=== PATIENT | female | born 1975 ===

== ENCOUNTER 2020-02-28 14:35 | Outpatient (REF) | payer MEDICAID, SELFPAY | END 2020-02-28 14:36 | disposition home or self-care (01) | LOC: HO.LAB 14:35 | PROVIDERS: Visit Provider Internal Medicine | DX: Z20.828 Contact with and (suspected) exposure to other viral communicable diseases (principal) | CPT/HCPCS: 87635 ==

== ENCOUNTER 2020-04-08 13:52 | Outpatient (REF) | payer MEDICAID, SELFPAY | END 2020-04-08 13:53 | disposition home or self-care (01) | LOC: HO.LAB 13:52 | PROVIDERS: Visit Provider Internal Medicine | DX: Z20.828 Contact with and (suspected) exposure to other viral communicable diseases (principal) | CPT/HCPCS: C9803; U0003 ==

== ENCOUNTER 2020-05-13 07:54 | Outpatient (REF) | payer MEDICAID, SELFPAY | END 2020-05-13 07:55 | disposition home or self-care (01) | LOC: HO.LAB 07:54 | PROVIDERS: Visit Provider Internal Medicine | DX: Z20.828 Contact with and (suspected) exposure to other viral communicable diseases (principal) | CPT/HCPCS: C9803; U0003 ==

== ENCOUNTER 2020-06-18 09:43 | Outpatient (REF) | payer MEDICAID, SELFPAY ==
[2020-06-20 20:21] LABS: HPV mRNA E6/E7 rflx Not Detected (Not Detected)
== END 2020-06-18 09:44 | disposition home or self-care (01) ==
LOC: HO.LAB 09:43
PROVIDERS: PCP Student in an Organized Health Care Education/Training Program; Visit Provider Obstetrics & Gynecology
DX: Z01.419 Encounter for gynecological examination (general) (routine) without abnormal findings (principal); Z11.51 Encounter for screening for human papillomavirus (HPV); E78.00 Pure hypercholesterolemia, unspecified; M06.9 Rheumatoid arthritis, unspecified
CPT/HCPCS: 36415; 87624; 88142

== ENCOUNTER 2020-09-03 08:53 | Outpatient (REF) | payer MEDICAID, SELFPAY ==
--- NOTE | ~2020-09-03 | MM_ITS ---
EXAMINATION: MM SCREENING DIGITAL BREAST TOMOSYNTHESIS, BILATERAL CLINICAL INFORMATION: Screening. Asymptomatic. The lifetime risk of breast cancer based on the Tyrer-Cuzick Model is 7.1%. COMPARISON: Mammography: December 20, 2018 and studies dating back to September 17, 2016 TECHNIQUE: Digital breast tomosynthesis is performed in both the craniocaudal and mediolateral oblique views along with computer-aided detection (CAD). Synthesized 2D images are generated from the tomosynthesis. FINDINGS: The breasts are heterogeneously dense, which may obscure small masses (ACR BI-RADS breast composition Category c). There are no significant masses, abnormal calcifications, or other abnormalities. MM/MM tomosynthesis screening BI IMPRESSION: There are no significant changes from prior study. ASSESSMENT: BI-RADS 1: Negative RECOMMENDATION: Routine annual mammography screening. This patient's information was entered into a reminder system with a target due date for their next mammogram.
== END 2020-09-03 08:54 | disposition home or self-care (01) ==
LOC: HO.MAMMO 08:53
PROVIDERS: Visit Provider Obstetrics & Gynecology
DX: Z12.31 Encounter for screening mammogram for malignant neoplasm of breast (principal)
CPT/HCPCS: 77063; 77067

== ENCOUNTER 2021-01-01 22:51 | Emergency (ER) | payer MEDICAID, SELFPAY ==
[2021-01-01 23:00] VITALS: BP 124/88; PULSE 162; RESP 16; TEMP 37; O2SAT 97; BMI 27.3
--- NOTE | 2021-01-01 23:08 | ECG_ITS ---
Test Reason : TACHYCARDIA Blood Pressure : / mmHG Vent. Rate : 162 BPM Atrial Rate : 162 BPM P-R Int : 124 ms QRS Dur : 076 ms QT Int : 262 ms P-R-T Axes : 000 055 041 degrees QTc Int : 430 ms Sinus tachycardia Nonspecific ST abnormality Abnormal ECG No previous ECGs available Referred By: Generic ED Physician Electronically Signed By:DAVID PAULSON
--- NOTE | 2021-01-01 23:36 | ED_ITS ---
HPI - Arrhythmia/Palpitations General Chief Complaint: Arrhythmia/Palpitations Stated Complaint: palpitations Time Seen by Provider: 01/01/21 23:24 Source: patient Mode of arrival: ambulatory Limitations: no limitations History of Present Illness HPI narrative: 45-year-old female who presents emergency department for evaluation of heart palpitations and chest pain. Patient states that at 9:29 p.m. she noticed her heart was palpitating. She states that lasted approximately 9 minutes. She describes the sensation is a rapid heart rate which was regular and she also had pressure in her chest. She points to her sternum states she had a heaviness which lasted while she was having the fast heart rate but then resolved. She had a 2nd episode which again lasted approximately 10 minutes. The symptoms then came back and were constant and were still present at the time of arrival in the emergency department. Patient states that she gets intermittent palpitations that will last 5-6 minutes but she has never had an episode this last this long. She states she does get chest heaviness with these episodes of palpitation. She denied any pain radiating to her neck, jaw, arms or back. She states that she did have an associated headache with the palpitations. She denied fever, chills, abdominal pain, linares e in bowel movements, change her urine. Related Data Home Medications Medication Instructions Recorded Confirmed gabapentin 600 mg tablet,extended 600 mg PO QPM 06/18/20 release 24 hr sulfasalazine 500 mg tablet 1 g PO DAILY 06/18/20 Previous Rx's Medication Instructions Recorded drospirenone 3 mg-ethinyl 1 tab PO DAILY #84 tab 09/29/20 estradiol 0.03 mg tablet Allergies Allergy/AdvReac Type Severity Reaction Status Date / Time No Known Allergies Allergy Verified 06/18/20 10:03 Review of Systems Review of Systems: Yes all other systems are reviewed and are negative [facility] Past Medical History [facility] Narrative: Past medical history: Asthma, rheumatoid arthritis not on any medications. Surgical history: Patient had an appendectomy and a left ovary removed. Social history: Patient occasionally drinks alcohol. She denies alcohol use she denies drug use. Surgical History Hx of appendectomy S/P left oophorectomy Family History Family History Father Heart attack Social History Social History Alcohol intake: never Advance Directives: No Advance Directives Information Provided: Yes Patient : No Gender identity: Female Physical Exam Vital Signs: Vital Signs: Last Vital Signs Temp 98.6 F 01/01/21 23:00 Pulse 95 01/02/21 00:28 Resp 16 01/02/21 00:28 BP 129/70 01/02/21 00:28 Pulse Ox 98 01/02/21 00:28 Body Mass Index 27.3 Const: General: cooperative and no acute distress Orientation/consciousness: oriented to person and oriented to place Limitations: no limitations HENMT: Head: Yes normal to inspection, Yes normocephalic and Yes atraumatic Ears: external ears normal General nose exam: Normal external nose present Face and sinus: Yes normal facial exam Mouth: Normal oral and palatal mucosa present Throat: Yes posterior oropharynx normal Eyes: General: appearance normal, both eyes and all related structures Pup ils: Equal, round and reactive pupils present Neck: Neck: Yes normal visual inspection, Yes no lymphadenopathy, Yes trachea midline and Yes supple Chest: Chest palpation & inspection: normal inspection of the chest and normal palpation of entire chest wall Resp: Effort & Inspection: normal respiratory effort and able to speak in complete sentences Auscultation: clear to auscultation bilaterally Cardio: Rate: tachycardic Rhythm: regular rhythm Heart sounds: S1 normal heart sound present, S2 normal heart sound present and no murmurs GI: Inspection: Yes normal to inspection Palpation (GI): Soft to palpation, nontender and no guarding Auscultation: normal bowel sounds : General: Yes no CVA tenderness Back/Spine/Pelvis: Back: no CVA tenderness Skin: General skin exam: no rashes or lesions noted Neuro: General: oriented to person and oriented to place Cranial nerves: Yes CN's II-XII intact bilaterally and Yes Equal, round and reactive pupils present Cognition (Neuro): normal cognition Motor exam (neuro): 5/5 motor strength present throughout Extrem: General: Yes normal to inspection Psych: Appearance: grossly normal Speech and movement: Normal speech and movement present Affect: normal affect Attitude: cooperative Thought process: Normal thought process present Thought content: Normal thought content present Course Course Course Narrative: 45-year-old female who presents emergency department for evaluation of palpitations and chest heaviness which began at 9:29 p.m. the patient has had similar episodes in the past but however she has never had an episode has lasted more than 10 minutes. On presentation, the patient was complaining of chest heaviness. The patient was found to be in an SVT with a rate of 160. She was given adenosine 6 mg IV push and she converted to a sinus tachycardia with a rate of 120. I did order laboratory evaluation to include CBC, CMP, troponin. Patient will also be given normal saline IV x1 L. 0243: The patient's laboratory evaluation was unremarkable including a nondetectable high sensitivity troponin. I did discuss SVT with the patient. Patient will be discharged home. The patient was given verbal and printed instructions prior to discharge. The patient was advised to follow-up with her PCP in 2 days and to return to the emergency department if her symptoms get worse or if she develops any new symptoms that are concerning to her. MDM - Arrhythmia/Palpitations Lab Data Result diagrams: 01/01/21 23:41 01/01/21 23:41 Labs: Lab Results 01/01/21 01/01/21 01/01/21 Range/Units 23:41 23:41 23:41 WBC 14.9 H (4.8-10.8) X10*3/uL RBC 4.54 (4.20-5.50) X10*6/uL Hgb 14.0 (12.0-16.0) g/dl Hct 41.6 (37-47) % MCV 91.6 (80-98) fL MCH 30.8 (27.0-33.0) pg MCHC 33.7 (31.0-35.0) g/dl RDW 13.3 (11.0-16.0) % Plt Count 471 H (160-400) X10*3/uL MPV 9.1 L (9.4-12.3) fL Immature Gran % (Auto) 0.6 H (0.0-0.4) % Neut % (Auto) 57.1 (45-73) % Lymph % (Auto) 34.1 (20-40) % Bulloch % (Auto) 6.3 (2-11) % Eos % (Auto) 1.4 (0-4) % Baso % (Auto) 0.5 (0-2) % Lymph # (Auto) 5.1 H (1.2-4.9) X10*3/uL Bulloch # (Auto) 0.9 (0.1-1.2) X10*3/uL Eos # (Auto) 0.2 (0.0-0.4) X10*3/uL Baso # (Auto) 0.1 (0.0-0.2) X10*3/uL Abs Immat Gran (auto) 0.09 H (0.00-0.03) X10*3/uL Absolute Neuts (auto) 8.5 H (2.0-8.3) X10*3/uL Absolute Nucleated RBC 0.000 (0.0-0.012) X10*3/uL Nucleated RBC % (auto) 0.0 (0.0-0.2) /100WBC Sodium 139 (135-145) mmol/L Potassium 3.7 (3.3-5.1) mmol/L Chloride 111 H (96-108) mmol/L Carbon Dioxide 20 L (22-29) mmol/L Anion Gap 12 (12-20) BUN 9 (9-16) mg/dL Creatinine 0.75 (0.5-1.4) mg/dL Estim Creat Clear Calc 89.7 Estimated GFR > 60 Random Glucose 109 (60-115) mg/dL Calcium 9.3 (8.4-10.2) mg/dL Total Bilirubin 0.2 (0.0-1.0) mg/dL AST 11 (5-31) U/L ALT 10 (0-31) U/L Alkaline Phosphatase 80 (39-117) U/L Troponin I High Sens < 3.5 (<3.5-17.0) ng/L Total Protein 6.6 (6.5-8.0) g/dL Albumin 3.9 (3.5-5.0) g/dL ECG Data Attestation: I personally reviewed and interpreted this ECG as follows: Interpretation: 2344: Supraventricular tachycardia with a rate of 162, normal PA interval, QRS duration and QTC interval, less than [address] segment depression in leads 2, 3, AVF, V3 through V6. No old EKG for comparison. 2351: EKG done after adenosine cardioversion, sinus rhythm with a rate of 97, normal PA interval, QRS duration and QTC interval, the patient does have [address] segment depression in leads 2, 3, AVF V4 through V6, this is seen on the initial EKG, I do not think that these are significant I do not think that they represent ischemia. Discharge Plan Discharge Clinical Impression: Supraventricular tachycardia Patient Disposition: Home, Self-Care Instructions: Supraventricular Tachycardia (ED) Additional Instructions: Your EKG was consistent with a supraventricular tachycardia. We gave you adenosine 6 mg IV and you converted to a normal sinus rhythm. You should follow-up with health science instructor discuss further management and treatment of your SVT. Follow-up with your doctor in 2 days. Please return to the emergency department if your symptoms get worse or if you develop any symptoms that are concerning to you. Prescriptions: No Action drospirenone-ethinyl estradiol 3-0.03 mg tablet 1 tab PO DAILY Qty: 84 RF: 6 gabapentin 600 mg tablet extended release 24 hr 600 mg PO QPM RF: 0 sulfasalazine 500 mg tablet 1 g PO DAILY RF: 0
[2021-01-01] MEDS: 0.9 % Sodium Chloride 1,000 ML 999 ML IV (23:37)
--- NOTE | 2021-01-01 23:41 | ECG_ITS ---
Test Reason : REPEAT EKG Blood Pressure : / mmHG Vent. Rate : 097 BPM Atrial Rate : 097 BPM P-R Int : 140 ms QRS Dur : 084 ms QT Int : 334 ms P-R-T Axes : 078 055 061 degrees QTc Int : 424 ms Normal sinus rhythm Normal ECG When compared with ECG of 01-JAN-2021 23:16, Vent. rate has decreased BY [address] no longer depressed in Anterior leads Referred By: Andrew Sifuentes Electronically Signed By:DAVID PAULSON
[2021-01-01 23:46] LABS: Basophils Absolute Auto 0.1 X10*3/uL (0.0-0.2); Basophils Percent Auto 0.5 % (0-2); Eosinophils Absolute Auto 0.2 X10*3/uL (0.0-0.4); Eosinophils Percent Auto 1.4 % (0-4); Hematocrit 41.6 % (37-47); Imm Gran Abs Auto 0.09 X10*3/uL (0.00-0.03); Imm Gran Pct Auto 0.6 % (0.0-0.4); Lymphocytes Absolute Auto 5.1 X10*3/uL (1.2-4.9); Lymphocytes Percent Auto 34.1 % (20-40); Mean Corpuscular HGB Conc 33.7 g/dl (31.0-35.0); Mean Corpuscular Hemoglobin 30.8 pg (27.0-33.0); Mean Corpuscular Volume 91.6 fL (80-98); Mean Platelet Volume 9.1 fL (9.4-12.3); Monocytes Absolute Auto 0.9 X10*3/uL (0.1-1.2); Monocytes Percent Auto 6.3 % (2-11); Neutrophils Absolute Auto 8.5 X10*3/uL (2.0-8.3); Neutrophils Percent Auto 57.1 % (45-73); Platelet Count 471 X10*3/uL (160-400); Red Blood Count 4.54 X10*6/uL (4.20-5.50); Red Cell Distribution Width 13.3 % (11.0-16.0); SCAN SMEAR FLAG 1; White Blood Count 14.9 X10*3/uL (4.8-10.8)
[2021-01-01 23:47] LABS: MANUAL DIFF FLAG NO
[2021-01-02 00:23] LABS: Alanine Aminotransferase 10 U/L (0-31); Albumin Level 3.9 g/dL (3.5-5.0); Alkaline Phosphatase 80 U/L (39-117); Anion Gap 12 (12-20); Aspartate Amino Transferase 11 U/L (5-31); Bilirubin Total 0.2 mg/dL (0.0-1.0); Blood Urea Nitrogen 9 mg/dL (9-16); Calcium 9.3 mg/dL (8.4-10.2); Carbon Dioxide 20 mmol/L (22-29); Chloride 111 mmol/L (96-108); Creatinine Clr Calc Pharmacy 89.7; Estimated Glomerular Filt Rate > 60; Glucose Random 109 mg/dL (60-115); Potassium 3.7 mmol/L (3.3-5.1); Sodium 139 mmol/L (135-145); Total Protein 6.6 g/dL (6.5-8.0)
[2021-01-02 00:28] VITALS: BP 129/70; PULSE 95; RESP 16; O2SAT 98
[2021-01-02 00:28] LABS: Troponin-I High Sensitivity < 3.5 ng/L (<3.5-17.0)
[2021-01-02 03:00] VITALS: PULSE 95; RESP 16; O2SAT 98
[2021-01-02 03:26] LABS: Glucose Urine UA NEG (NEG); Leukocyte Esterase Urine NEG (NEG); Nitrite Urine NEG (NEG); Specific Gravity - Urine 1.015 (1.005-1.025); Urine Blood NEG (NEG); Urine Ketones NEG (NEG); Urine Protein NEG (NEG-TRACE)
[2021-01-02 03:29] LABS: Appearance Urine CLEAR; Color Urine YELLOW
[2021-01-02 03:39] LABS: Bacteria Urine TRACE /LPF; RBC Urine 0-2 /HPF (0); Squamous Epithelial Cell Urine TRACE /LPF; WBC Urine 0-2 /HPF (0-4)
== END 2021-01-02 03:55 | disposition home or self-care (01) ==
PROVIDERS: Emergency Provider Emergency Medicine Emergency Medical Services; PCP Student in an Organized Health Care Education/Training Program
DX: I47.1 Supraventricular tachycardia (principal); R00.2 Palpitations; R07.9 Chest pain, unspecified; Z79.899 Other long term (current) drug therapy
CPT/HCPCS: 36415; 80053; 81001; 84484; 85025; 93005; 96361; 96372; 96374; 99284; J0153

== ENCOUNTER → 2021-01-05 09:19 | Outpatient (BNVA) | payer MEDICAID, SELFPAY | PROVIDERS: PCP Student in an Organized Health Care Education/Training Program; Referring Provider Student in an Organized Health Care Education/Training Program; Visit Provider Internal Medicine Cardiovascular Disease | DX: R07.89 Other chest pain (principal); I47.1 Supraventricular tachycardia; E78.5 Hyperlipidemia, unspecified | CPT/HCPCS: 99202 ==

== ENCOUNTER → 2021-01-14 08:54 | Outpatient (REF) | payer MEDICAID, SELFPAY ==
--- NOTE | 2021-01-14 08:58 | CA_ITS ---
Acquisition Time: 2021-01-14 09:05:19 Total Exercise Time: 00:09:14 Test Indications: Abnormal ECG Medications: ALBUTEROL Protocol: AYO Max HR: 155 BPM 88% of Pred: 176 BPM Max BP: 138/080 mmHG Max Work Load: 10.4 METS Exercise stress test with exercise 9 min 14 sec of Ayo protocol, without anginal symptoms, without arrythmia, with normotensive response to exercise, without EKG changes meeting criteria for ischemia. Test reviewed with Dr Cason Referred By: Abdoul Owen Overread By: CHERYL ALBA
== END ==
LOC: HO.CARD 08:54
PROVIDERS: PCP Student in an Organized Health Care Education/Training Program; Visit Provider Internal Medicine Cardiovascular Disease
DX: R07.89 Other chest pain (principal)
CPT/HCPCS: 93017

== ENCOUNTER → 2021-02-09 14:57 | Outpatient (REF) | payer MEDICAID, SELFPAY ==
--- NOTE | 2021-02-09 15:00 | CA_ITS ---
Transthoracic Echocardiogram Patient (Last, First, Middle): Jamee Reynoso, Gender: Female Date of : 1975 Age: 45 Procedure Date: 02/09/2021 Procedure Type: Transthoracic Echocardiogram Location: OP Height: 157.48 cm Weight: 69.85 kg BSA: 1.71 m2 Heart Rate: bpm BP: 110 / 60 mmHg Technical Proposal Writer: CANDIE Referring MD: Abdoul Owen MD Symptoms: I47.1 - Supraventricular tachycardia Study Quality: Good ECG Rhythm: Sinus Conclusions: - The left ventricular systolic function is normal. The calculated ejection fraction is 64% by biplane method. - No obvious valvular pathology seen on this study. Findings Left Ventricle Normal left ventricular cavity size. There is normal left ventricular wall thickness. The left ventricular systolic function is normal. The calculated ejection fraction is 64% by biplane method. There is no evidence of regional wall motion abnormalities. Diastolic function is normal for age. Right Ventricle Normal right ventricular cavity size and systolic function. Atria Both atria are normal in size. Aortic Valve There is a normal trileaflet aortic valve. There is no aortic valve stenosis. There is no aortic valve regurgitation. Mitral Valve The mitral valve appears normal. There is trace mitral valve regurgitation. There is no mitral valve stenosis. Pulmonic Valve The pulmonic valve is likely normal. Tricuspid Valve Normal tricuspid valve structure. There is trace tricuspid valve regurgitation. The pulmonary artery systolic pressure is normal. Great Vessels The aortic annulus, sinuses of valsalva, and asc aorta are normal in size. Venous The inferior vena cava is normal in size and collapses greater than 50% with inspiration. Pericardium/Pleural There is no evidence of pericardial effusion. Prior Study Comparison No prior study available for comparison. Recommendations, Care & Conclusions No obvious valvular pathology seen on this study. Measurements 2D Linear Measurements IVSd: 0.81 0.6-0.9/0.6-1.0 cm LVIDd: 4.65 3.9-5.3/4.2-5.9 cm LVIDd Index: 2.72 2.4-3.2/2.2-3.1 cm/m2 LVIDs: 2.91 2.0-3.6 cm LVPWd: 0.77 0.7-1.1 cm Ao Root: 3.00 2.1-3.5 cm LA Diam: 3.20 2.7-3.8/3.0-4.0 cm LAIDs Index: 1.87 1.5-2.3 cm/m2 LV Mass: 146.06 67-162/88-224 g LV Mass Index: 85.42 43-95/49-115 g/m2 LVOT Diam: 2.00 3.0+(-)1.3 cm 2D Systolic Function EF 4C: 60.60 >55% EF 2C: 68.90 >55% EF BiP: 63.60 >55% Mitral Valve MV Pk E: 0.96 MV PK A: 0.74 MV Decel Time: 172.00 E/A: 1.30 E'Lateral: 13.90 E'Medial: 9.68 E/E' Med: 9.90 E/E' Lat: 6.90 PHT: 50.00 MVA PHT: 4.40 Decel Christian: 5.58 Aortic Valve AoV Pk Bhavesh: 1.31 AoV Mn Bhavesh: 0.96 AoV VTI: 0.30 AoV Pk Grad: 7.00 Aov Mn Grad: 4.00 DIEGO Cont.VTI: 2.21 LVOT LVOT Pk Bhavesh: 1.07 LVOT Mn Bhavesh: 0.65 LVOT VTI: 0.21 LVOT Pk Grad: 5.00 LVOT Mn Grad: 2.00 LVOT Diam: 2.00 LVOT Area: 3.14 Diastolic Function MV Pk E: 0.96 MV Pk A: 0.74 E/A: 1.30 E'Medial: 9.68 E/E' Med: 9.90 E' Laterial: 13.90 E/E' Lat: 6.90 Right Ventricle TAPSE (mm): 2.04 TVS' Bhavesh: 11.90 Tricuspid Valve TR Pk Bhavesh: 1.38 TR Pk Grad: 8.00 RA Press: 3.00 RVSP: 11.00 Great Vessels Aorta Ao Root-2D: 3.00 2.0-3.7 cm Ao Asc: 2.80 2.1-3.4 cm Ao Arch: 2.60 Updated in Other Vendor System with Status of Final Deepak Alberts MD electronically signed on 02/10/2021 11:05:21 AM with status of Final
== END ==
LOC: HO.CARD 14:57
PROVIDERS: Visit Provider Internal Medicine Cardiovascular Disease
DX: I47.1 Supraventricular tachycardia (principal)
CPT/HCPCS: 93306

== ENCOUNTER 2021-02-23 09:38 | Emergency (ER) | payer MEDICAID, SELFPAY ==
[2021-02-23 09:40] VITALS: BP 118/67; PULSE 87; RESP 16; TEMP 37; O2SAT 98; BMI 28.7
[2021-02-23] MEDS: Fluorescein Sodium STRIP 1 STRIP EYE-BOTH (10:54)
[2021-02-23] MEDS: Tetracaine HCl/PF 0.5% Oph Sol 4 ML DROPS 2 DROP EYE-BOTH (10:54)
--- NOTE | 2021-02-23 11:05 | ED.EYEPROB ---
HPI - Eye Problem General Chief complaint: Eye Problems Stated complaint: sty Time Seen by Provider: 02/23/21 10:41 Source: patient Mode of arrival: ambulatory Limitations: no limitations History of Present Illness MD chief complaint: eye redness and foreign body Onset (ago): day(s) (Since last night) Onset description: gradual Duration: constant and progressively worsening Location: right eye Eye Symptoms: burning, redness, foreign body sensation, itching and discharge Place: home Mechanism: none Severity: mild If Pain, Quality: burning Associated symptoms: none Treatments Prior to Arrival: irrigated eye Related Data Home Medications Medication Instructions Recorded Confirmed albuterol sulfate 90 mcg/actuation 2 puff INHALATION QID PRN 01/05/21 01/05/21 aerosol inhaler (ProAir HFA) Previous Rx's Medication Instructions Recorded cephalexin 500 mg capsule 500 mg PO Q6H 10 Days #40 cap 02/23/21 doxycycline hyclate 100 mg tablet 100 mg PO BID 10 Days #20 tab 02/23/21 erythromycin 5 mg/gram (0.5 %) eye 0.5 inch OPHTHALMIC (EYE) QID 7 02/23/21 ointment Days #3.5 g Allergies Allergy/AdvReac Type Severity Reaction Status Date / Time No Known Allergies Allergy Verified 06/18/20 10:03 Review of Systems Review of Systems: Constitutional : No fevers, no chills, No changes in activity, No lethargy, No recent prior head injury, No agitation, No increased fussiness ENT/Mouth : No Ear Pain, No Nasal discharge/drainage Eyes: + right eyelid pain/swelling with purulent discharge from the right eye and redness, patient unsure if she has a foreign body, No Vision changes/blurry/decreased vision, No Eye Pain, No Photophobia, no contact lens uses, no recent welding, no bleeding Cardiovascular : No Chest Pain, No SOB Respiratory : No Cough Gastrointestinal : No Nausea, No Vomiting, No abdominal Pain Genitourinary : No Dysuria, No Urinary Frequency, No Urinary Incontinence, No Urgency, No Flank Pain Musculoskeletal : No joint pain, No neck stiffness, No back pain/injury Skin : No lacerations Neuro : No unsteady gait, No Paresthesias, No Loss of Consciousness, No altered mental status, No dizziness, No Headache Denies past medical history of HIV, recent trauma, coagulopathy, recent spinal/ epidural procedure, new medication, URI symptoms, close contacts with similar symptoms, tick bite, or known CO2 exposure. Yes all other systems are reviewed and are negative COUNT INCLUDES THE [facility] Past Medical History Attestation statement: The following information was validated with the patient. Medical History Family history of premature CAD Hyperlipidemia Supraventricular tachycardia Surgical History Hx of appendectomy S/P left oophorectomy Family History Family History Father Heart attack Mother Heart attack Paternal Grandfather Stroke Paternal Grandmother Stroke Social History Social History Alcohol intake: never Advance Directives: No Advance Directives Information Provided: No Gender identity: Female Physical Exam Vital Signs: Vital Signs: Last Vital Signs Temp 98.6 F 02/23/21 09:40 Pulse 87 02/23/21 09:40 Resp 16 02/23/21 09:40 BP 118/67 02/23/21 09:40 Pulse Ox 98 02/23/21 09:40 Body Mass Index 28.7 vital signs have been reviewed as normal and appeared to be correct. Blood pressure normal. Heart rate normal. Respiration rate normal. Temperature normal. Oxygen saturation normal. Appearance: Alert. Oriented X3. No acute distress. Head: Normal external exam. Normocephalic. Atraumatic. No Lanza signs noted. No raccoon eyes noted Eyes: PERRLA. EOMI. Right conjunctiva erythematous with purulent yellow drainage consistent with bacterial conjunctivitis patient is also noted to have upper and lower eyelid swelling mildly with erythema and she is noted have a stye to her right lower eyelid. There were no foreign bodies noted and no obvious corneal abrasions or ulcerations noted. No fluorescein uptake noted. The left conjunctiva and cornea are within normal limits. Funduscopic exam within normal limits. Sclera normal. Eyelids normal. No papilledema noted. Anterior chamber normal. No photophobia noted. ENT: Pharynx normal. Uvula midline. Moist mucous membranes. Neck: Normal inspection. Neck supple. FROM. CVS: Normal heart rate and rhythm. Respiratory: No respiratory distress. Back: Full range of motion noted. Skin: Skin warm and dry. Normal skin color. Normal skin turgor. No rashes/lesions/lacerations noted. Extremities: Extremities exhibit normal range of motion. Extremities nontender. Neuro: Oriented X 3. No motor deficit. No sensory deficit. Reflexes normal. Course Course Course Narrative: 45-year-old female presenting to the ED with complaints of right eye redness/eyelid swelling question of a foreign body and yellow crusting to the eye. She is not a contact user. Denies any trauma to the eye. Denies any actual pain. On exam there was no fluorescein uptake she is noted to have a stye and bacterial conjunctivitis. Will DC home with antibiotics and symptomatic treatment referral to Ophthalmology along with instructions return if any new or worsening symptoms follow-up with primary care provider. Patient understands agrees this plan. MDM - Eye Problem Medical Records Attestation: I reviewed the patient's medical records. Discharge Plan Discharge Clinical Impression: Blepharitis, Bacterial conjunctivitis, External hordeolum Patient Disposition: Home, Self-Care Instructions: Stye (ED), Blepharitis (ED), Conjunctivitis (ED) Prescriptions: New doxycycline hyclate 100 mg tablet 100 mg PO BID 10 Days Qty: 20 RF: 0 erythromycin 5 mg/gram (0.5 %) ointment 0.5 inch ophthalmic (eye) QID 7 Days Qty: 3.5 RF: 0 cephalexin 500 mg capsule 500 mg PO Q6H 10 Days Qty: 40 RF: 0 No Action albuterol sulfate [ProAir HFA] 90 mcg/actuation HFA aerosol inhaler 2 puff inhalation QID PRNRF: 0 Referrals: Maik Jay [Physician] - 2 days Margie Mccrary MD [Primary Care Provider] - 2 days Print Language: French
[2021-02-23] MEDS: Erythromycin Base 0.5% Oph Oin 1 GM TUBE 1 CM EYE-BOTH (11:18)
== END 2021-02-23 11:24 | disposition home or self-care (01) ==
PROVIDERS: Emergency Provider Emergency Medicine; PCP Student in an Organized Health Care Education/Training Program
DX: H10.89 Other conjunctivitis (principal); H01.003 Unspecified blepharitis right eye, unspecified eyelid; H00.013 Hordeolum externum right eye, unspecified eyelid
CPT/HCPCS: 99283; 99284

== ENCOUNTER → 2021-03-30 15:08 | Outpatient (BNVA) | payer MEDICAID, SELFPAY | PROVIDERS: PCP Student in an Organized Health Care Education/Training Program; Referring Provider Student in an Organized Health Care Education/Training Program; Visit Provider Internal Medicine Cardiovascular Disease | DX: I47.1 Supraventricular tachycardia (principal); E78.5 Hyperlipidemia, unspecified | CPT/HCPCS: 99212 ==

== ENCOUNTER 2021-06-30 13:22 | Emergency (ER) | payer MEDICAID, SELFPAY ==
--- NOTE | 2021-06-30 | ECG_ITS ---
Test Reason : Arrythmia repeat Blood Pressure : / mmHG Vent. Rate : 092 BPM Atrial Rate : 092 BPM P-R Int : 134 ms QRS Dur : 088 ms QT Int : 350 ms P-R-T Axes : 078 074 059 degrees QTc Int : 432 ms Normal sinus rhythm Normal ECG When compared with ECG of 30-JUN-2021 13:31, No significant changes seen Referred By: Lena Lu Electronically Signed By:ALEX NATARAJAN MD
--- NOTE | 2021-06-30 13:25 | ECG_ITS ---
Test Reason : PALPITATIONS Blood Pressure : / mmHG Vent. Rate : 163 BPM Atrial Rate : 000 BPM P-R Int : 000 ms QRS Dur : 076 ms QT Int : 262 ms P-R-T Axes : 000 048 -53 degrees QTc Int : 431 ms Supraventricular tachycardia Nonspecific ST and T wave abnormality Abnormal ECG When compared with ECG of 01-JAN-2021 23:51, Vent. rate has increased BY [address] now depressed in Anterior leads Nonspecific T wave abnormality now evident in Inferior leads Referred By: Generic ED Physician Electronically Signed By:ALEX NATARAJAN MD
[2021-06-30 13:26] VITALS: BP 135/72; PULSE 170; RESP 18; O2SAT 99; BMI 23.3
--- NOTE | 2021-06-30 13:44 | ECG_ITS ---
Test Reason : Arrythmia repeat Blood Pressure : / mmHG Vent. Rate : 092 BPM Atrial Rate : 092 BPM P-R Int : 134 ms QRS Dur : 088 ms QT Int : 350 ms P-R-T Axes : 078 074 059 degrees QTc Int : 432 ms Normal sinus rhythm Normal ECG When compared with ECG of 30-JUN-2021 13:31, Vent. rate has decreased BY 71 BPM Normal sinus rhythm has replaced Supraventricular tachycardia ST no longer depressed in Anterior leads Nonspecific T wave abnormality no longer evident in Inferior leads T wave inversion no longer evident in Anterior leads Referred By: Lena Lu Electronically Signed By:ALEX NATARAJAN MD
[2021-06-30] MEDS: Adenosine 6 MG/2 ML VIAL IVPUSH (13:46)
[2021-06-30] MEDS: 0.9 % Sodium Chloride 1,000 ML 999 ML IVCONT (13:47)
--- NOTE | 2021-06-30 13:47 | ED_ITS ---
HPI - Arrhythmia/Palpitations General Chief Complaint: Arrhythmia/Palpitations Stated Complaint: palpations Time Seen by Provider: 06/30/21 13:39 Source: patient Mode of arrival: ambulatory Limitations: no limitations History of Present Illness complaint: palpitations Onset (ago): hour(s) (11am today) Duration: constant Severity: moderate Context: occurred during rest Arrhythmia history: SVT Associated symptoms: denies other symptoms Treatments prior to arrival: vagal maneuvers Related Data Home Medications Medication Instructions Recorded Confirmed albuterol sulfate 90 mcg/actuation 2 puff INHALATION QID PRN 01/05/21 03/30/21 aerosol inhaler (ProAir HFA) Allergies Allergy/AdvReac Type Severity Reaction Status Date / Time No Known Allergies Allergy Verified 06/30/21 13:25 Review of Systems Review of Systems: Constitutional : No Weight loss, No Fever, No Chills ENT/Mouth : No sore throat, No Rhinorrhea Eyes: No Eye Pain, No Swelling Cardiovascular : no Chest Pain, no SOB, no Dyspnea on Exertion, No Orthopnea, No Edema, pos Palpitations Respiratory : No Cough, No Sputum Gastrointestinal : no Nausea, No Vomiting, No Diarrhea, No abdominal Pain, No Hematochezia, No Melena Genitourinary : No Dysuria, No Urinary Frequency Musculoskeletal : No joint pain, No Myalgias, No Joint Swelling Skin : No Skin Lesions, No rash Neuro : No Weakness, No Numbness, No Dizziness, No Headache Psych : No Anxiety/Panic, No Depression Heme/Lymph: No Bruising, No Lymphadenopathy Endocrine : No Polyuria, No Polydipsia All other systems reviewed and are negative [facility] Past Medical History Attestation statement: The following information was validated with the patient. Medical History Family history of premature CAD Hyperlipidemia Supraventricular tachycardia Surgical History Hx of appendectomy S/P left oophorectomy Family History Family History Father Heart attack Mother Heart attack Paternal Grandfather Stroke Paternal Grandmother Stroke Social History Social History (Updated 06/30/21 @ 14:12 by Lena Lu DO) Alcohol intake: never Patient Tobacco Use Status: Former Tobacco user Advance Directives: No Advance Directives Information Provided: No Gender identity: Female Physical Exam Vital Signs: Vital Signs: Last Vital Signs Temp 99.0 F 06/30/21 15:27 Pulse 83 06/30/21 15:27 Resp 20 06/30/21 15:27 BP 110/71 06/30/21 15:27 Pulse Ox 98 06/30/21 15:27 BMI result Body Mass Index 23.3 Appearance: Alert. Oriented X3. No acute distress. Smiling and laughing, wa lked in no distress Eyes: Pupils equal, round and reactive to light. ENT: Pharynx normal. Neck: Normal inspection. Neck supple. CVS: tachycardic heart rate and rhythm. Pulses normal. Respiratory: No respiratory distress. Breath sounds normal. Abdomen: Soft and non-tender. Skin: Skin warm and dry. Normal skin color. Normal skin turgor. Extremities: No lower extremity edema. No calf ttp Neuro: Oriented X 3. No motor deficit. No sensory deficit. Course Course Course Narrative: cardioverted to sinus tachycardia after 6mg IV adenosine denies recent infectious illness hx of elevated WBC count in the past - possibly acute phase reactant discussed with patient stable for DC at this time feels fine no symptoms MDM - Arrhythmia/Palpitations MDM Narrative Medical decision making narrative: 45 yo female hx of HLD and SVT - has had negative workups with cardiology in the past no triggers planned for possible ablation in SVT since 11am will try maneuvers vs medications. No CP/SOB. Lab Data Result diagrams: 06/30/21 13:52 06/30/21 14:26 Labs: Lab Results 06/30/21 06/30/21 06/30/21 Range/Units 13:52 14:00 14:01 WBC 20.0 H (4.8-10.8) X10*3/uL RBC 5.05 (4.20-5.50) X10*6/uL Hgb 15.3 (12.0-16.0) g/dl Hct 46.8 (37.0-47.0) % MCV 92.7 (80.0-98.0) fL MCH 30.3 (27.0-33.0) pg MCHC 32.7 (31.0-35.0) g/dl RDW 13.6 (11.0-16.0) % Plt Count 502 H (160-400) X10*3/uL MPV 9.5 (9.4-12.3) fL Immature Gran % (Auto) Cancelled Neut % (Auto) Cancelled Lymph % (Auto) Cancelled [place] % (Auto) Cancelled Eos % (Auto) Cancelled Baso % (Auto) Cancelled Lymph # (Auto) Cancelled [place] # (Auto) Cancelled Eos # (Auto) Cancelled Baso # (Auto) Cancelled Abs Immat Gran (auto) Cancelled Absolute Neuts (auto) Cancelled Absolute Nucleated RBC 0.000 (0.0-0.012) X10*3/uL Nucleated RBC % (auto) 0.0 (0.0-0.2) /100WBC Neutrophils % (Manual) 61 (45-73) % Band Neutrophils % 0 L (3-5) % Lymphocytes % (Manual) 32 (20-40) % Monocytes % (Manual) 5 (2-11) % Eosinophils % (Manual) 1 (0-4) % Basophils % (Manual) 1 (0-2) % Abs Neuts (Manual) 12.2 H (2.0-8.3) X10*3/uL Lymphocytes # (Manual) 6.4 H (1.2-4.9) X10*3/uL Monocytes # (Manual) 1.0 (0.1-1.2) X10*3/uL Eosinophils # (Manual) 0.2 (0.0-0.4) X10*3/uL Basophils # (Manual) 0.2 (0.0-0.2) X10*3/uL Platelet Estimate NORMAL (NORMAL) Plt Morphology Comment NORMAL RBC Morphology NORMAL Sodium (135-145) mmol/L Potassium (3.3-5.1) mmol/L Chloride (96-108) mmol/L Carbon Dioxide (22-29) mmol/L Anion Gap (12-20) BUN (9-16) mg/dL Creatinine (0.5-1.4) mg/dL Estim Creat Clear Calc Estimated GFR Random Glucose (60-115) mg/dL Calcium (8.4-10.2) mg/dL Magnesium (1.6-2.6) mg/dL [place] < 0.10 L (0.60-1.20) mmol/L COVID-19 (LANA) Negative (Negative) COVID-19 Clin Com See Note 06/30/21 Range/Units 14:26 WBC (4.8-10.8) X10*3/uL RBC (4.20-5.50) X10*6/uL Hgb (12.0-16.0) g/dl Hct (37.0-47.0) % MCV (80.0-98.0) fL MCH (27.0-33.0) pg MCHC (31.0-35.0) g/dl RDW (11.0-16.0) % Plt Count (160-400) X10*3/uL MPV (9.4-12.3) fL Immature Gran % (Auto) Neut % (Auto) Lymph % (Auto) [place] % (Auto) Eos % (Auto) Baso % (Auto) Lymph # (Auto) [place] # (Auto) Eos # (Auto) Baso # (Auto) Abs Immat Gran (auto) Absolute Neuts (auto) Absolute Nucleated RBC (0.0-0.012) X10*3/uL Nucleated RBC % (auto) (0.0-0.2) /100WBC Neutrophils % (Manual) (45-73) % Band Neutrophils % (3-5) % Lymphocytes % (Manual) (20-40) % Monocytes % (Manual) (2-11) % Eosinophils % (Manual) (0-4) % Basophils % (Manual) (0-2) % Abs Neuts (Manual) (2.0-8.3) X10*3/uL Lymphocytes # (Manual) (1.2-4.9) X10*3/uL Monocytes # (Manual) (0.1-1.2) X10*3/uL Eosinophils # (Manual) (0.0-0.4) X10*3/uL Basophils # (Manual) (0.0-0.2) X10*3/uL Platelet Estimate (NORMAL) Plt Morphology Comment RBC Morphology Sodium 138 (135-145) mmol/L Potassium 4.1 (3.3-5.1) mmol/L Chloride 107 (96-108) mmol/L Carbon Dioxide 24 (22-29) mmol/L Anion Gap 11 L (12-20) BUN 10 (9-16) mg/dL Creatinine 0.72 (0.5-1.4) mg/dL Estim Creat Clear Calc 93.3 Estimated GFR > 60 Random Glucose 93 (60-115) mg/dL Calcium 9.2 (8.4-10.2) mg/dL Magnesium 1.8 (1.6-2.6) mg/dL [place] (0.60-1.20) mmol/L COVID-19 ([facility]) (Negative) COVID-19 Clin Com ECG Data Attestation: I personally reviewed and interpreted this ECG as follows: ECG interpretation date: 06/30/21 ECG interpretation time: 13:53 Interpretation: Rate: 163 Rhythm: SVT [place]: normal Normal P waves. Normal MARTHA. Normal QRS complex. ST T wave : nonspecific no DUNG qTC: normal prior studies: changed from prior The study has been interpreted contemporaneously by me. EKG #2 Rate: 92 Rhythm: NSR [place]: normal Normal P waves. Normal MARTHA. Normal QRS complex. ST T wave : no DUNG qTC: normal prior studies: changed, no acute ischemia The study has been interpreted contemporaneously by me. . Discharge Plan Discharge Clinical Impression: Supraventricular tachycardia, Leukocytosis Patient Disposition: Home, Self-Care Instructions: Supraventricular Tachycardia (ED) Additional Instructions: return to ED for any worsening symptoms or concerns your WBC count is elevated chronically please follow up with your doctor and repeat in 2 days - CBC repeat 2 days take a baby aspirin 81mg daily Prescriptions: No Action albuterol sulfate [ProAir HFA] 90 mcg/actuation HFA aerosol inhaler 2 puff inhalation QID [id number] Referrals: Abdoul Owen MD [Physician] - 2 days Stand Alone Forms: Work/School Release
--- NOTE | 2021-06-30 13:47 | PC.NURSE ---
ARRIVED IN SVT 177, VALSALVA PROCEDURES ATTEMPTED, NOT SUCCESSFUL, PT RECEIVED 6 OF ADENOSINE AND BROKE INTO NSR AT 93
[2021-06-30 13:59] LABS: Hematocrit 46.8 % (37.0-47.0); Hemoglobin 15.3 g/dl (12.0-16.0); Mean Corpuscular HGB Conc 32.7 g/dl (31.0-35.0); Mean Corpuscular Hemoglobin 30.3 pg (27.0-33.0); Mean Corpuscular Volume 92.7 fL (80.0-98.0); Mean Platelet Volume 9.5 fL (9.4-12.3); Platelet Count 502 X10*3/uL (160-400); Red Blood Count 5.05 X10*6/uL (4.20-5.50); Red Cell Distribution Width 13.6 % (11.0-16.0)
[2021-06-30 14:01] VITALS: BP 134/79; PULSE 98; RESP 15; O2SAT 95
[2021-06-30 14:26] LABS: COVID-19 Test Negative (Negative)
[2021-06-30 14:28] LABS: Band Neutrophils Percent 0 % (3-5); Basophils Abs Manual 0.2 X10*3/uL (0.0-0.2); Basophils Percent Manual 1 % (0-2); Eosinophils Absolute Manual 0.2 X10*3/uL (0.0-0.4); Eosinophils Percent Manual 1 % (0-4); Lymphocytes Absolute Manual 6.4 X10*3/uL (1.2-4.9); Lymphocytes Percent Manual 32 % (20-40); Monocytes Percent Manual 5 % (2-11); Neutrophils Absolute Manual 12.2 X10*3/uL (2.0-8.3); Neutrophils Percent Manual 61 % (45-73)
[2021-06-30 14:29] LABS: Platelet Estimate NORMAL (NORMAL); Platelet Morphology Comment NORMAL; RBC Morphology NORMAL
[2021-06-30 14:52] LABS: Lithium < 0.10 mmol/L (0.60-1.20)
[2021-06-30 14:53] LABS: Anion Gap 11 (12-20); Blood Urea Nitrogen 10 mg/dL (9-16); Calcium 9.2 mg/dL (8.4-10.2); Carbon Dioxide 24 mmol/L (22-29); Chloride 107 mmol/L (96-108); Creatinine Clr Calc Pharmacy 93.3; Estimated Glomerular Filt Rate > 60; Glucose Random 93 mg/dL (60-115); Magnesium 1.8 mg/dL (1.6-2.6); Potassium 4.1 mmol/L (3.3-5.1); Sodium 138 mmol/L (135-145)
[2021-06-30 15:27] VITALS: BP 110/71; PULSE 83; RESP 20; TEMP 37.2; O2SAT 98
== END 2021-06-30 15:40 | disposition home or self-care (01) ==
PROVIDERS: Emergency Provider Emergency Medicine; PCP Student in an Organized Health Care Education/Training Program
DX: I47.1 Supraventricular tachycardia (principal); Z20.822 Contact with and (suspected) exposure to COVID-19; D72.829 Elevated white blood cell count, unspecified; E78.5 Hyperlipidemia, unspecified
CPT/HCPCS: 36415; 80048; 80178; 83735; 85007; 85025; 85027; 87635; 93005; 96361; 96374; 99283; 99284; J0153

== ENCOUNTER → 2021-07-02 13:53 | Outpatient (BNVA) | payer MEDICAID, SELFPAY | PROVIDERS: PCP Student in an Organized Health Care Education/Training Program; Visit Provider Nurse Practitioner Family | DX: I47.1 Supraventricular tachycardia (principal) | CPT/HCPCS: 99212 ==

== ENCOUNTER → 2021-07-15 08:05 | Outpatient (BNVA) | payer MEDICAID, SELFPAY | PROVIDERS: PCP Student in an Organized Health Care Education/Training Program; Visit Provider Obstetrics & Gynecology ==

== ENCOUNTER 2021-07-20 14:43 | Outpatient (REF) | payer MEDICAID, SELFPAY ==
[2021-07-20 15:40] LABS: Cholesterol 247 mg/dL; HDL Cholesterol 59 mg/dL; LDL Cholesterol Calculated 158 mg/dl; Triglycerides 151 mg/dL
== END 2021-07-20 14:44 | disposition home or self-care (01) ==
LOC: HO.LAB 14:43
PROVIDERS: Visit Provider Internal Medicine Cardiovascular Disease
DX: I25.10 Atherosclerotic heart disease of native coronary artery without angina pectoris (principal); E78.5 Hyperlipidemia, unspecified
CPT/HCPCS: 36415; 80061; 86141

== ENCOUNTER 2021-08-13 16:55 | Emergency (ER) | payer MEDICAID, SELFPAY ==
--- NOTE | ~2021-08-13 | XR_ITS ---
EXAMINATION: XR CHEST CLINICAL INFORMATION: Shortness of breath, asthma. COMPARISON: Chest radiograph dated from 03/04/2013. TECHNIQUE: 2 views of the chest were obtained. FINDINGS: Normal appearance of the cardiomediastinal silhouette. Mild interstitial prominence. No focal airspace opacities, pleural effusions or pneumothorax. No acute osseous abnormalities. XR/XR chest 2V IMPRESSION: Mild interstitial prominence could be associated with the asthma attack. Otherwise, no focal airspace opacities, pleural effusions or pneumothorax.
[2021-08-13 17:50] VITALS: BP 105/62; PULSE 72; RESP 18; TEMP 36.9; O2SAT 98; BMI 28.4
--- NOTE | 2021-08-13 20:01 | ED.ASTHMA ---
HPI - Asthma General Chief Complaint: Asthma Stated Complaint: SOB Time Seen by Provider: 08/13/21 20:00 Source: patient Mode of arrival: ambulatory Limitations: no limitations History of Present Illness HPI Narrative: This is a 45-year-old female pmhx asthma, hld presenting to the emergency department shortness of breath, cough x1 week. Patient tells me that this feels like her typical asthma attack she has been using her inhaler nebulizers without relief. She tells me that he symptoms are worse at night. She tells me her cough is usually dry cough however she has been having an intermittent productive cough. No recent sick contacts. Up-to-date on all immunizations. She denies fevers, chills, nausea, vomiting, chest pain,, headache, dizziness, weakness, calf pain, leg swelling. MD complaint: asthma attack and shortness of breath Onset (ago): week(s) (1) Severity: moderate Context: none known Associated symptoms: none Treatments Prior to Arrival: inhaled bronchodilator and inhaled steroid Related Data Home Medications Medication Instructions Recorded Confirmed albuterol sulfate 90 mcg/actuation 2 puff INHALATION QID PRN 01/05/21 07/17/21 aerosol inhaler (ProAir HFA) Previous Rx's Medication Instructions Recorded albuterol sulfate 2.5 mg (3 mL) INHALATION Q6H #75 ml 08/13/21 albuterol sulfate 90 mcg/actuation 2 inh INHALATION Q4-6H PRN #1 ea 08/13/21 breath activated powder inhaler prednisone 20 mg tablet 20 mg PO DAILY 5 Days #5 tab 08/13/21 Allergies Allergy/AdvReac Type Severity Reaction Status Date / Time No Known Allergies Allergy Verified 08/13/21 17:49 Review of Systems Review of Systems: Constitutional : No Weight loss, No Fever, No Chills, No Fatigue, No Malaise ENT/Mouth : No sore throat, No Rhinorrhea Eyes: No Eye Pain, No Swelling, No Redness Cardiovascular : No Chest Pain, + SOB, No Dyspnea on Exertion, No Orthopnea, No Edema, No Palpitations Respiratory : No Cough, No Sputum, No Wheezing Gastrointestinal : No Nausea, No Vomiting, No Diarrhea, No Constipation, No abdominal Pain, No Hematochezia, No Melena Genitourinary : No Dysuria, No Urinary Frequency, No Hematuria, Musculoskeletal : No joint pain, No Myalgias, No Joint Swelling Skin : No Skin Lesions, No rash Neuro : No Weakness, No Numbness, No Dizziness, No Headache Psych : No Anxiety/Panic, No Depression All other systems reviewed and are negative Yes all other systems are reviewed and are negative [facility] Past Medical History Attestation statement: The following information was validated with the patient. Source: old records reviewed and nursing notes reviewed Medical History (Updated 08/13/21 @ 22:53 by RAVI Milligan) Asthma Family history of premature CAD Hyperlipidemia Rheumatoid aortitis Supraventricular tachycardia Surgical History Hx of appendectomy S/P left oophorectomy Family History Family History Father Heart attack Mother Heart attack Paternal Grandfather Stroke Paternal Grandmother Stroke Social History Social History Alcohol intake: never Patient Tobacco Use Status: Former Tobacco user Advance Directives: No Patient : No Gender identity: Female Physical Exam Vital Signs: Vital Signs: Last Vital Signs Temp 98.5 F 08/13/21 17:50 Pulse 92 08/13/21 21:26 Resp 18 08/13/21 21:26 BP 105/62 08/13/21 17:50 Pulse Ox 98 08/13/21 17:50 BMI result Body Mass Index 28.4 Vital signs stable. Appearance: Alert.? Oriented X3.? No acute distress.? Patient is speaking in full sentences. No use of accessory muscles for breathing. Head: Normocephalic, atraumatic, no step-offs or deformities Eyes: Pupils equal, round and reactive to light.? ENT: Pharynx normal.? Neck: Normal inspection.? Neck supple.? CVS: Normal heart rate and rhythm.? Pulses normal.? Respiratory: No respiratory distress.? Wheezing appreciated throughout decreased breath sounds bilaterally. Abdomen: Soft and nontender.? Skin: Skin warm and dry.? Normal skin color.? Normal skin turgor.? Extremities: No lower extremity edema.? No calf ttp. 5/5 strength to bilateral upper and lower extremities Back: No midline tenderness, no C-spine tenderness, full range of motion, no CVA tenderness bilaterally Neuro: Oriented X 3.? No motor deficit.? No sensory deficit. CN 2-12 intact Course Reevaluation(s) Reevaluation #1: Patient with a slight leukocytosis likely secondary to shortness of breath,/reactive. No acute electrolyte abnormalities. Influenza and COVID negative. Chest x-ray consistent with it an asthma attack with interstitial prominence. No signs of pneumonia, pneumothorax, pleural effusions. Significant improvement after magnesium, Solu-Medrol and 3 breathing treatments. Patient will be sent home with an albuterol inhaler, nebulizing treatments and prednisone for 5 days. Advised her to return with new or worsening symptoms. At this time I feel comfortable discharge home likely asthma exacerbation. Time: 23:05 MDM - Asthma MDM Narrative Medical decision making narrative: 2001 45 yo f pmhx asthma, hld presents with which she tells me is her typical asthma attack. She tells me this has been coming on for about a week. Use multiple inhalers and treatments at home without relief. Asthma has never required intubation. Physical exam with wheezing throughout and diminished breath sounds. Regular rate and rhythm. Neuro nonfocal. Negative Matt sign bilaterally. Unlikely pneumonia, unlikely PE. Likely asthma. Plan at this time is labs, imaging, flu/COVID/RSV. Patient will receive an albuterol treatment, magnesium Solu-Medrol. Medical Records Attestation: I reviewed the patient's medical records. Lab Data Attestation: I reviewed the patient's lab results. Result diagrams: 08/13/21 20:30 08/13/21 20:30 Labs: Lab Results 08/13/21 08/13/21 08/13/21 Range/Units 20:03 20:30 20:30 WBC 11.0 H (4.8-10.8) X10*3/uL RBC 4.57 (4.20-5.50) X10*6/uL Hgb 14.3 (12.0-16.0) g/dl Hct 42.9 (37.0-47.0) % MCV 93.9 (80.0-98.0) fL MCH 31.3 (27.0-33.0) pg MCHC 33.3 (31.0-35.0) g/dl RDW 13.0 (11.0-16.0) % Plt Count 454 H (160-400) X10*3/uL MPV 9.0 L (9.4-12.3) fL Immature Gran % (Auto) 0.4 (0.0-0.4) % Neut % (Auto) 40.2 L (45-73) % Lymph % (Auto) 45.3 H (20-40) % [place] % (Auto) 7.7 (2-11) % Eos % (Auto) 5.4 H (0-4) % Baso % (Auto) 1.0 (0-2) % Lymph # (Auto) 5.0 H (1.2-4.9) X10*3/uL [place] # (Auto) 0.9 (0.1-1.2) X10*3/uL Eos # (Auto) 0.6 H (0.0-0.4) X10*3/uL Baso # (Auto) 0.1 (0.0-0.2) X10*3/uL Abs Immat Gran (auto) 0.04 H (0.00-0.03) X10*3/uL Absolute Neuts (auto) 4.4 (2.0-8.3) x10*3/uL Absolute Nucleated RBC 0.000 (0.0-0.012) X10*3/uL Nucleated RBC % (auto) 0.0 (0.0-0.2) /100WBC Sodium 139 (135-145) mmol/L Potassium 3.8 (3.3-5.1) mmol/L Chloride 106 (96-108) mmol/L Carbon Dioxide 27 (22-29) mmol/L Anion Gap 10 L (12-20) BUN 10 (9-16) mg/dL Creatinine 0.70 (0.5-1.4) mg/dL Estim Creat Clear Calc 98.0 Estimated GFR > 60 Random Glucose 97 (60-115) mg/dL Calcium 9.4 (8.4-10.2) mg/dL Magnesium 2.2 (1.6-2.6) mg/dL Total Bilirubin 0.3 (0.0-1.0) mg/dL AST 14 (5-31) U/L ALT 13 (0-31) U/L Alkaline Phosphatase 65 (39-117) U/L Total Protein 6.9 (6.5-8.0) g/dL Albumin 4.1 (3.5-5.0) g/dL Influenza Type A (PCR) NEGATIVE (Negative) Influenza Type B (PCR) NEGATIVE (Negative) RSV RNA Qual (PCR) NEGATIVE (Negative) SARS-CoV-2 RNA (RT-PCR) NEGATIVE (Negative) Critical Care Time Critical Care Time Critical Care Time: No Discharge Plan Discharge Clinical Impression: Asthma with acute exacerbation Patient Disposition: Home, Self-Care Instructions: Asthma (ED) Additional Instructions: Take your medications as prescribed. If you were prescribed antibiotics today, it is important that you take your medication to their entirety, do not skip any doses, do not finish them early. Follow-up with your primary care provider this week. Return to the emergency department with new or worsening symptoms. Such as fevers, chills, chest pain, shortness of breath, nausea, vomiting, dizziness, headache, vision changes, lethargy In case of emergency call 911 Prescriptions: New albuterol sulfate 90 mcg/actuation aerosol powdr breath activated 2 inh inhalation Q4-6H PRN (Reason: shortness of breath or wheezing) Qty: 1 2RF prednisone 20 mg tablet 20 mg PO DAILY 5 Days Qty: 5 0RF albuterol sulfate 2.5 mg /3 mL (0.083 %) solution for nebulization 2.5 mg inhalation Q6H Qty: 75 0RF No Action albuterol sulfate [ProAir HFA] 90 mcg/actuation HFA aerosol inhaler 2 puff inhalation QID PRN (Reason: Shortness Of Breath) 0RF Referrals: Margie Mccrary MD [Primary Care Provider] - 2 days Stand Alone Forms: Work/School Release
[2021-08-13] MEDS: Albuterol Sulfate (0.083%) 2.5 MG/3 ML VIAL.NEB 10 MG INHALE ×2 (20:17→21:24)
[2021-08-13 20:19] VITALS: PULSE 71; RESP 18; O2SAT 98
[2021-08-13 20:35] LABS: MANUAL DIFF FLAG NO
[2021-08-13 20:37] LABS: Basophils Absolute Auto 0.1 X10*3/uL (0.0-0.2); Eosinophils Absolute Auto 0.6 X10*3/uL (0.0-0.4); Eosinophils Percent Auto 5.4 % (0-4); Hematocrit 42.9 % (37.0-47.0); Hemoglobin 14.3 g/dl (12.0-16.0); Imm Gran Abs Auto 0.04 X10*3/uL (0.00-0.03); Imm Gran Pct Auto 0.4 % (0.0-0.4); Lymphocytes Percent Auto 45.3 % (20-40); Mean Corpuscular HGB Conc 33.3 g/dl (31.0-35.0); Mean Corpuscular Hemoglobin 31.3 pg (27.0-33.0); Mean Corpuscular Volume 93.9 fL (80.0-98.0); Monocytes Absolute Auto 0.9 X10*3/uL (0.1-1.2); Monocytes Percent Auto 7.7 % (2-11); Neutrophils Absolute Auto 4.4 x10*3/uL (2.0-8.3); Neutrophils Percent Auto 40.2 % (45-73); Platelet Count 454 X10*3/uL (160-400); Red Blood Count 4.57 X10*6/uL (4.20-5.50)
[2021-08-13 20:58] LABS: Influenza A PCR NEGATIVE (Negative); Influenza B PCR NEGATIVE (Negative); Resp Syncy Virus RNA Qual PCR NEGATIVE (Negative); SARS COV2 PCR INHOUSE NEGATIVE (Negative)
[2021-08-13 20:59] LABS: Alanine Aminotransferase 13 U/L (0-31); Albumin Level 4.1 g/dL (3.5-5.0); Alkaline Phosphatase 65 U/L (39-117); Anion Gap 10 (12-20); Aspartate Amino Transferase 14 U/L (5-31); Bilirubin Total 0.3 mg/dL (0.0-1.0); Blood Urea Nitrogen 10 mg/dL (9-16); Calcium 9.4 mg/dL (8.4-10.2); Carbon Dioxide 27 mmol/L (22-29); Chloride 106 mmol/L (96-108); Estimated Glomerular Filt Rate > 60; Glucose Random 97 mg/dL (60-115); Magnesium 2.2 mg/dL (1.6-2.6); Potassium 3.8 mmol/L (3.3-5.1); Sodium 139 mmol/L (135-145); Total Protein 6.9 g/dL (6.5-8.0)
[2021-08-13] MEDS: methylPREDNISolone Sod Succ 125 MG/2 ML VIAL IVPUSH (21:12)
[2021-08-13] MEDS: Magnesium Sulfate/H2O 2 GM/50 ML PIGGYBACK IV (21:12)
[2021-08-13 21:26] VITALS: PULSE 92; RESP 18; O2SAT 97
[2021-08-13] MEDS: ondansetron HCL 4 MG/2 ML VIAL IVPUSH (21:40)
[2021-08-13 23:16] VITALS: PULSE 97; RESP 18; O2SAT 98
[2021-08-13] MEDS: Albuterol Sulfate (0.083%) 2.5 MG/3 ML VIAL.NEB 5 MG INHALE (23:16)
[2021-08-13 23:20] VITALS: BP 110/78; PULSE 87; RESP 16; O2SAT 98
== END 2021-08-13 23:57 | disposition home or self-care (01) ==
PROVIDERS: Physician Assistant; Emergency Provider Internal Medicine; PCP Student in an Organized Health Care Education/Training Program
DX: J45.901 Unspecified asthma with (acute) exacerbation (principal); Z20.822 Contact with and (suspected) exposure to COVID-19; E78.5 Hyperlipidemia, unspecified; Z79.899 Other long term (current) drug therapy
CPT/HCPCS: 0241U; 36415; 71046; 80053; 83735; 85025; 94640; 94644; 96365; 96366; 96375; 99284; 99285; J2405; J2930; J3475

== ENCOUNTER 2021-09-04 10:01 | Outpatient (REF) | payer MEDICAID, SELFPAY ==
--- NOTE | ~2021-09-04 | MM_ITS ---
EXAMINATION: MM SCREENING DIGITAL BREAST TOMOSYNTHESIS, BILATERAL CLINICAL INFORMATION: Screening. Asymptomatic. The lifetime risk of breast cancer based on the Tyrer-Cuzick Model is 6%. COMPARISON: Mammography: 09/03/2020, 12/20/2018, 11/08/2017 TECHNIQUE: Digital breast tomosynthesis is performed in both the craniocaudal and mediolateral oblique views along with computer-aided detection (CAD). Synthesized 2D images are generated from the tomosynthesis. FINDINGS: There are scattered areas of fibroglandular density (ACR BI-RADS breast composition Category b). There are no significant masses, abnormal calcifications, or other abnormalities. Parenchymal pattern is similar to prior studies. No significant changes. MM/MM tomosynthesis screening BI IMPRESSION: No mammographic evidence of malignancy. ASSESSMENT: BI-RADS 1: Negative RECOMMENDATION: Routine annual mammography screening. This patient's information was entered into a reminder system with a target due date for their next mammogram.
== END 2021-09-04 10:02 | disposition home or self-care (01) ==
LOC: HO.MAMMO 10:01
PROVIDERS: Visit Provider Obstetrics & Gynecology
DX: Z12.31 Encounter for screening mammogram for malignant neoplasm of breast (principal)
CPT/HCPCS: 77063; 77067

== ENCOUNTER 2021-09-23 08:48 | Outpatient (REF) | payer MEDICAID, SELFPAY ==
[2021-09-23 09:04] LABS: MANUAL DIFF FLAG NO
[2021-09-23 09:27] LABS: Basophils Absolute Auto 0.1 X10*3/uL (0.0-0.2); Eosinophils Absolute Auto 0.3 X10*3/uL (0.0-0.4); Eosinophils Percent Auto 3.6 % (0-4); Hematocrit 46.2 % (37.0-47.0); Hemoglobin 15.2 g/dl (12.0-16.0); Imm Gran Abs Auto 0.04 X10*3/uL (0.00-0.03); Imm Gran Pct Auto 0.5 % (0.0-0.4); Lymphocytes Absolute Auto 3.5 X10*3/uL (1.2-4.9); Lymphocytes Percent Auto 43.6 % (20-40); Mean Corpuscular HGB Conc 32.9 g/dl (31.0-35.0); Mean Corpuscular Hemoglobin 30.7 pg (27.0-33.0); Mean Corpuscular Volume 93.3 fL (80.0-98.0); Mean Platelet Volume 9.4 fL (9.4-12.3); Monocytes Absolute Auto 0.7 X10*3/uL (0.1-1.2); Monocytes Percent Auto 8.8 % (2-11); Neutrophils Absolute Auto 3.4 x10*3/uL (2.0-8.3); Neutrophils Percent Auto 42.5 % (45-73); Platelet Count 453 X10*3/uL (160-400); Red Blood Count 4.95 X10*6/uL (4.20-5.50); Red Cell Distribution Width 12.6 % (11.0-16.0)
== END 2021-09-23 08:49 | disposition home or self-care (01) ==
LOC: HO.LAB 08:48
PROVIDERS: PCP Student in an Organized Health Care Education/Training Program; Visit Provider Internal Medicine
DX: D72.829 Elevated white blood cell count, unspecified (principal)
CPT/HCPCS: 36415; 81206; 81207; 85025; 88184; 88185

== ENCOUNTER → 2021-10-01 15:00 | Outpatient (BNVA) | payer MEDICAID, SELFPAY | PROVIDERS: PCP Student in an Organized Health Care Education/Training Program; Visit Provider Internal Medicine Cardiovascular Disease | DX: Z13.89 Encounter for screening for other disorder (principal) ==

== ENCOUNTER 2021-10-05 20:58 | Emergency (ER) | payer MEDICAID, SELFPAY | END 2021-10-05 21:43 | disposition left against medical advice (07) | PROVIDERS: Emergency Provider Emergency Medicine | DX: R10.9 Unspecified abdominal pain (principal) ==

== ENCOUNTER 2021-10-06 10:38 | Outpatient (REF) | payer MEDICAID, SELFPAY ==
--- NOTE | ~2021-10-06 | XR_ITS ---
EXAMINATION: XR chest 2V CLINICAL INFORMATION: Reason for Exam CHRONIC COUGH,PLEURODYNIA COMPARISON: Chest radiograph 08/13/2021 TECHNIQUE: 2 views of the chest XR/XR chest 2V FINDINGS/IMPRESSION: * Clear lungs. * No pneumothorax or pleural effusion. * Normal cardiomediastinal silhouette.
== END 2021-10-06 10:39 | disposition home or self-care (01) ==
LOC: HO.XRAY 10:38
PROVIDERS: Absent Provider Student in an Organized Health Care Education/Training Program; PCP Student in an Organized Health Care Education/Training Program; Visit Provider Emergency Medicine
DX: R07.81 Pleurodynia (principal); R05.3 Chronic cough
CPT/HCPCS: 71046

== ENCOUNTER 2021-11-17 20:00 | Emergency (ER) | payer MEDICAID, SELFPAY ==
--- NOTE | ~2021-11-17 | XR_ITS ---
EXAMINATION: CR CHEST CLINICAL INFORMATION: Chest tightness. COMPARISON: Chest x-ray dated 10/06/2021 and 08/13/2021. TECHNIQUE: AP view of the chest was obtained. FINDINGS: The cardiomediastinal silhouette is within normal limits in size. Lungs bilaterally are symmetrically expanded. No focal consolidation, effusion or pneumothorax is seen. Bony structures are unremarkable. XR/XR chest 1V IMPRESSION: No acute cardiopulmonary process.
[2021-11-17 20:05] VITALS: BMI 28.9
--- NOTE | 2021-11-17 20:05 | ECG_ITS ---
Test Reason : CHEST TIGHTNESS Blood Pressure : / mmHG Vent. Rate : 076 BPM Atrial Rate : 076 BPM P-R Int : 126 ms QRS Dur : 088 ms QT Int : 390 ms P-R-T Axes : 055 048 037 degrees QTc Int : 438 ms Normal sinus rhythm Normal ECG When compared with ECG of 30-JUN-2021 13:45, No significant change was found Referred By: Generic ED Physician Electronically Signed By:Mayo Cason
[2021-11-17 20:15] VITALS: BP 126/69; PULSE 77; RESP 16; TEMP 37; O2SAT 96; BMI 28.9
[2021-11-17 20:35] LABS: COVID-19 Test Negative (Negative)
[2021-11-17 20:47] LABS: IDNOW Serial# 9DB6401D; Influenza A Negative (Negative); Influenza B2 Negative (Negative)
== END 2021-11-17 22:54 | disposition left against medical advice (07) ==
PROVIDERS: Emergency Provider Emergency Medicine
DX: R07.89 Other chest pain (principal); R06.02 Shortness of breath; J45.909 Unspecified asthma, uncomplicated; Z20.822 Contact with and (suspected) exposure to COVID-19; Z79.899 Other long term (current) drug therapy
CPT/HCPCS: 71045; 87502; 87635; 93005; 99281; 99283

== ENCOUNTER 2022-05-12 12:27 | Emergency (ER) | payer MEDICAID, SELFPAY ==
[2022-05-12 12:44] VITALS: BP 151/85; PULSE 81; RESP 16; TEMP 36.6; O2SAT 99; BMI 29.9
--- NOTE | 2022-05-12 12:46 | ED_ITS ---
HPI - Skin/Abscess/Foreign Bdy General Chief complaint: Skin/Abscess/Foreign Body Stated complaint: Rash Time Seen by Provider: 05/12/22 12:50 Source: patient Mode of arrival: ambulatory Limitations: no limitations History of Present Illness HPI narrative: 46 yo female presenting to the ER for evaluation of an itchy and worsening rash on her right buttock for the last 2 months. The ear yes started as a small, re d, itchy area on her underwear line right her buttock. She saw her primary care doctor twice for this and was given 2 different steroid creams. She states the triamcinolone cream helps with itching and burning but the area has over time gotten bigger and is more itchy. She has tried other [id number] topical regimens like Benadryl and other creams. MD complaint: rash Onset (ago): month(s) (2) Location: buttocks Severity: moderate Severity scale (1-10): 7 Quality: pruritic Pain Consistency: constant Relieving factors: topical medication Exacerbating factors: none Context: none Associated symptoms: denies other symptoms Treatments prior to arrival: OTC topical medication and corticosteroid Related Data Home Medications Medication Instructions Recorded Confirmed albuterol sulfate 90 mcg/actuation 2 puff inhalation QID PRN 01/05/21 09/24/21 aerosol inhaler (ProAir HFA) Shortness Of Breath Previous Rx's Medication Instructions Recorded albuterol sulfate 2.5 mg/3 mL 2.5 mg (3 mL) inhalation Q6H #75 mL 08/13/21 (0.083 %) solution for nebulization fluconazole 150 mg tablet 150 mg PO Q3D 2 doses #2 tabs 05/12/22 (Diflucan) nystatin 100,000 unit/gram topical 1 appl topical TID #30 grams 05/12/22 ointment Allergies Allergy/AdvReac Type Severity Reaction Status Date / Time No Known Allergies Allergy Verified 11/17/21 20:16 Review of Systems Review of Systems: Constitutional: No Fever, No Chills Gastrointestinal: No Vomiting, No Diarrhea, No abdominal Pain Genitourinary: No Dysuria, No Urinary Frequency, No Hematuria Musculoskeletal: No joint pain, No Myalgias Skin: No Skin Lesions, + rash Neuro: No Weakness, No Numbness, Psych: + Anxiety/Panic Heme/Lymph: No Bruising, No Lymphadenopathy PMFSH Past Medical History Medical History (Updated 05/12/22 @ 12:47 by RAVI Wolf) Asthma Family history of premature CAD Hyperlipidemia Rheumatoid aortitis Supraventricular tachycardia Surgical History Hx of appendectomy S/P left oophorectomy Family History Family History Father Heart attack Mother Heart attack Paternal Grandfather Stroke Paternal Grandmother Stroke Social History Social History Alcohol intake: never Patient Tobacco Use Status: Former Tobacco user Advance Directives: No Advance Directives Information Provided: Yes Gender identity: Female Physical Exam 2 Vital Signs: Vital Signs: Last Vital Signs Temp 97.8 F 05/12/22 12:44 Pulse 81 05/12/22 12:44 Resp 16 05/12/22 12:44 BP 151/85 H 05/12/22 12:44 Pulse Ox 99 05/12/22 12:44 O2 Del Method 05/12/22 12:44 BMI result Body Mass Index 29.9 Appearance: Alert. Oriented X3. No acute distress. HEENT: normal inspection CVS: Normal heart rate and rhythm. Pulses normal. Respiratory: No respiratory distress. Skin: Skin warm and dry. Normal skin color. Normal skin turgor. Right buttock with a large well circumscribed area covering the entire right buttock with crusting, flakey rim Extremities: normal inspection x4, normal ROM Neuro: Oriented X 3. No motor deficit. No sensory deficit. Course Course Course Narrative: 46 yo female presenting with large pruritic rash on her right buttock, worsening x 2months with topical corticosteroids. Exam consistent with tinea. Will treat with oral and topical agents given size and duration. patient counseled, agrees with plan. Discharge Plan Discharge Clinical Impression: Tinea corporis Patient Disposition: Home, Self-Care Instructions: Tinea Corporis (ED) Additional Instructions: STOP using the topical steroid creams. START the new antifungal ointment as directed. Take the prescribed antifungal oral meds as prescribed. Wear cotton clothing to allow the area to breathe. Follow up with your PCP as needed. Prescriptions: New fluconazole [Diflucan] 150 mg tablet 150 mg PO Q3D Qty: 2 0RF nystatin 100,000 unit/gram ointment 1 appl topical TID Qty: 30 1RF No Action albuterol sulfate 2.5 mg /3 mL (0.083 %) solution for nebulization 2.5 mg inhalation Q6H Qty: 75 0RF albuterol sulfate [ProAir HFA] 90 mcg/actuation HFA aerosol inhaler 2 puff inhalation QID PRN (Reason: Shortness Of Breath) Interventions: ED Discharge Assessment Last Done: 05/12/22 13:04
== END 2022-05-12 13:04 | disposition home or self-care (01) ==
LOC: HO.ED 13:00
PROVIDERS: Emergency Provider Student in an Organized Health Care Education/Training Program; PCP Student in an Organized Health Care Education/Training Program
DX: B35.4 Tinea corporis (principal); Z79.899 Other long term (current) drug therapy
CPT/HCPCS: 99282; 99283

== ENCOUNTER 2022-06-30 20:23 | Emergency (ER) | payer MEDICAID, SELFPAY ==
[2022-06-30 21:16] VITALS: BP 140/81; PULSE 80; RESP 20; TEMP 36.9; O2SAT 98; BMI 29.9
== END 2022-06-30 21:41 | disposition left against medical advice (07) ==
PROVIDERS: Emergency Provider Emergency Medicine; PCP Student in an Organized Health Care Education/Training Program
DX: R06.02 Shortness of breath (principal)
CPT/HCPCS: 99281

== ENCOUNTER 2022-08-26 14:47 | Outpatient (REF) | payer MEDICAID, SELFPAY ==
[2022-08-27 14:15] LABS: CT PCR NOT DETECTED (Not Detect.); NG PCR NOT DETECTED (Not Detect.)
== END 2022-08-26 14:48 | disposition home or self-care (01) ==
LOC: HO.LNP 14:47
PROVIDERS: PCP Student in an Organized Health Care Education/Training Program; Visit Provider Obstetrics & Gynecology
DX: Z01.419 Encounter for gynecological examination (general) (routine) without abnormal findings (principal); N93.9 Abnormal uterine and vaginal bleeding, unspecified
CPT/HCPCS: 0353U

== ENCOUNTER 2022-09-02 15:49 | Outpatient (REF) | payer MEDICAID, SELFPAY ==
--- NOTE | ~2022-09-02 | US_ITS ---
EXAMINATION: US PELVIS COMPLETE CLINICAL INFORMATION: Abnormal uterine and vaginal bleeding COMPARISON: None TECHNIQUE: Transabdominal and transvaginal imaging was performed. FINDINGS: The uterus is of normal size measuring 7.1 x 4.0 x 4.5 cm. Heterogeneous myometrial echotexture with subendometrial cystic change and suspected junctional zone thickening which can be seen in the setting of adenomyosis. Uterus is retroverted in position. Nabothian cysts in the cervix. A regular homogeneous endometrium is identified measuring 0.5 cm. Right ovary is of normal size and echogenicity. The right ovary measures 3.5 x 1.7 x 2.4 cm. Physiologic involuting corpus luteum cyst. The left ovary is not identified and may be absent. No suspicious adnexal mass. Dilated left adnexal vessels which could be seen in the setting of pelvic venous congestion syndrome if clinical symptoms are appropriate. There is no pelvic free fluid. US/US pelvic and transvaginal IMPRESSION: 1. Heterogeneous myometrial echotexture with subendometrial cystic change and suspected junctional zone thickening which can be seen in the setting of adenomyosis. 2. Left ovary is not identified and may be absent. No suspicious adnexal mass. 3. Dilated left adnexal vessels which could be seen in the setting of pelvic venous congestion syndrome if clinical symptoms are appropriate.
== END 2022-09-02 15:50 | disposition home or self-care (01) ==
LOC: HO.US 15:49
PROVIDERS: PCP Student in an Organized Health Care Education/Training Program; Visit Provider Obstetrics & Gynecology
DX: N93.9 Abnormal uterine and vaginal bleeding, unspecified (principal)
CPT/HCPCS: 76830; 76856

== ENCOUNTER 2022-09-06 15:20 | Outpatient (REF) | payer MEDICAID, SELFPAY ==
--- NOTE | ~2022-09-06 | MM_ITS ---
EXAMINATION: MM SCREENING DIGITAL BREAST TOMOSYNTHESIS, BILATERAL CLINICAL INFORMATION: Screening. Asymptomatic. The lifetime risk of breast cancer based on the Tyrer-Cuzick Model is 6%. COMPARISON: Mammography: 09/04/2021 and studies dating back to 09/17/2016. TECHNIQUE: Digital breast tomosynthesis is performed in both the craniocaudal and mediolateral oblique views along with computer-aided detection (CAD). Synthesized 2D images are generated from the tomosynthesis. FINDINGS: The breasts are heterogeneously dense, which may obscure small masses (ACR BI-RADS breast composition Category c). About the lateral aspect of the right breast in craniocaudal projection there is an asymmetric density likely related to superposition of fibroglandular tissue and for which spot compression view is recommended. About the deep lateral aspect of the left breast there is a circumscribed 7 x 5 mm density not imaged previously for which spot compression view and ultrasound is recommended. This may represent intramammary lymph node. MM/MM tomosynthesis screening BI IMPRESSION: Bilateral breast densities for further evaluation as described. ASSESSMENT: BI-RADS 0: Incomplete - Need Additional Imaging Evaluation RECOMMENDATION: 1. Additional views of the bilateral breasts. 2. Targeted ultrasound if warranted after review of the additional views. 3. Radiology department staff will contact the patient for additional imaging. This patient's information was entered into a reminder system with a target due date for their next mammogram.
== END 2022-09-06 15:21 | disposition home or self-care (01) ==
LOC: HO.MAMMO 15:20
PROVIDERS: Absent Provider Obstetrics & Gynecology; PCP Student in an Organized Health Care Education/Training Program; Referring Provider Obstetrics & Gynecology; Visit Provider Student in an Organized Health Care Education/Training Program
DX: Z12.31 Encounter for screening mammogram for malignant neoplasm of breast (principal)
CPT/HCPCS: 77063; 77067

== ENCOUNTER 2022-09-13 14:59 | Outpatient (REF) | payer MEDICAID, SELFPAY ==
[2022-09-13 16:36] LABS: Hematocrit 46.7 % (37.0-47.0); Hemoglobin 15.2 g/dl (12.0-16.0); Mean Corpuscular HGB Conc 32.5 g/dl (31.0-35.0); Mean Corpuscular Hemoglobin 30.8 pg (27.0-33.0); Mean Corpuscular Volume 94.7 fL (80.0-98.0); Mean Platelet Volume 10.2 fL (9.4-12.3); Platelet Count 542 X10*3/uL (160-400); Red Blood Count 4.93 X10*6/uL (4.20-5.50); Red Cell Distribution Width 13.2 % (11.0-16.0); White Blood Count 9.9 X10*3/uL (4.8-10.8)
[2022-09-13 17:20] LABS: HCG Quantitative < 2 mIU/mL; TSH reflex Free T4 0.87 uIU/mL (0.32-4.0)
== END 2022-09-13 15:00 | disposition home or self-care (01) ==
LOC: HO.LAB 14:59
PROVIDERS: PCP Student in an Organized Health Care Education/Training Program; Visit Provider Obstetrics & Gynecology
DX: N93.9 Abnormal uterine and vaginal bleeding, unspecified (principal)
CPT/HCPCS: 36415; 84443; 84702; 85027; 99212

== ENCOUNTER 2022-09-20 14:50 | Outpatient (REF) | payer MEDICAID, SELFPAY | END 2022-09-20 14:51 | disposition home or self-care (01) | LOC: HO.LNP 14:50 | PROVIDERS: PCP Student in an Organized Health Care Education/Training Program; Visit Provider Obstetrics & Gynecology | DX: N93.9 Abnormal uterine and vaginal bleeding, unspecified (principal); Z32.02 Encounter for pregnancy test, result negative | CPT/HCPCS: 58100; 81025; 88305 ==

== ENCOUNTER 2022-10-05 14:42 | Outpatient (REF) | payer MEDICAID, SELFPAY ==
--- NOTE | ~2022-10-05 | MM_ITS ---
EXAMINATION: MM DIAGNOSTIC DIGITAL BREAST TOMOSYNTHESIS, BILATERAL US DIAGNOSTIC ULTRASOUND BREAST, LEFT CLINICAL INFORMATION: Recall from screening for question of asymmetric density posterior outer right breast on CC view and small nodular asymmetric density posterior outer left breast on CC view. TC score 6%. COMPARISON: Multiple prior mammography exams including most recent 09/06/2022. TECHNIQUE: Digital breast tomosynthesis is performed. 2D images are generated from the tomosynthesis. The following views are obtained: Right spot CC, right rolled CC x2; left spot CC x2, left ML. Ultrasound left breast is targeted to the outer breast using grayscale imaging and color Doppler without and with harmonics. FINDINGS: The breasts are heterogeneously dense, which may obscure small masses (ACR BI-RADS breast composition Category c). Additional views right breast show no underlying mass or developing density or architectural abnormality. There are no significant changes from prior studies. Additional views left breast show fine fibronodular pattern with questionable subcentimeter nodularity in area for recall of equal attenuation and smooth margins. Ultrasound left breast demonstrates a small cyst posterior 3:00 position 11 cm from nipple measuring 5 mm in greatest dimension. There is no solid mass or architectural abnormality. No focal duct ectasia. Results are discussed with the patient at time of visit. The right breast is unremarkable, unchanged from prior studies. The incidental cyst posterior outer left breast may correspond to the finding on recent mammography. As a precaution, short interval 6-month follow-up left mammography will be requested to reassess for change. MM/MM tomosynthesis added view BI IMPRESSION: Left: -Small oval benign-appearing nodular asymmetry posterior outer breast. -Small oval benign cyst posterior outer left breast on ultrasound, likely correlate for the mammographic finding. Right: -No significant changes from prior studies. ASSESSMENT: BI-RADS 3: Probably Benign RECOMMENDATION: Diagnostic left mammography in 6 months. This patient's information was entered into a reminder system with a target due date for their next mammogram.
== END 2022-10-05 14:43 | disposition home or self-care (01) ==
LOC: HO.MAMMO 14:42
PROVIDERS: PCP Student in an Organized Health Care Education/Training Program; Visit Provider Student in an Organized Health Care Education/Training Program
DX: R92.2 Inconclusive mammogram (principal)
CPT/HCPCS: 76642; 77062; 77066

== ENCOUNTER → 2022-10-06 13:43 | Outpatient (BNVA) | payer MEDICAID, SELFPAY | PROVIDERS: PCP Student in an Organized Health Care Education/Training Program; Visit Provider Obstetrics & Gynecology | DX: N93.9 Abnormal uterine and vaginal bleeding, unspecified (principal) | CPT/HCPCS: 99212 ==

== ENCOUNTER 2023-02-23 15:29 | Emergency (ER) | payer MEDICAID, SELFPAY | END 2023-02-23 17:20 | disposition left against medical advice (07) | LOC: HO.ED 17:08 | PROVIDERS: Emergency Provider Emergency Medicine; PCP Student in an Organized Health Care Education/Training Program | DX: J45.909 Unspecified asthma, uncomplicated (principal) ==

== ENCOUNTER 2023-04-14 11:49 | Emergency (ER) | payer MEDICAID, SELFPAY ==
--- NOTE | ~2023-04-14 | XR_ITS ---
EXAMINATION: XR CHEST 2 VIEW CLINICAL INFORMATION: Cough COMPARISON: 11/17/2021 TECHNIQUE: PA and lateral views of the chest obtained. FINDINGS: The lungs are clear. There are no pleural effusions. The cardiomediastinal silhouette is normal. XR/XR chest 2V IMPRESSION: No acute cardiopulmonary disease.
--- NOTE | 2023-04-14 11:51 | ECG_ITS ---
Test Reason : CP Blood Pressure : / mmHG Vent. Rate : 076 BPM Atrial Rate : 076 BPM P-R Int : 128 ms QRS Dur : 090 ms QT Int : 372 ms P-R-T Axes : 046 055 030 degrees QTc Int : 418 ms Normal sinus rhythm Normal ECG When compared with ECG of 17-NOV-2021 20:01, No significant change was found Referred By: Sharon Pak Electronically Signed By:ALEX NATARAJAN MD
[2023-04-14 12:11] VITALS: BP 109/58; PULSE 77; RESP 18; TEMP 36.9; O2SAT 98; BMI 29.3
[2023-04-14 13:31] LABS: Influenza A PCR NEGATIVE (Negative); Influenza B PCR NEGATIVE (Negative); Resp Syncy Virus RNA Qual PCR NEGATIVE (Negative); SARS COV2 PCR INHOUSE NEGATIVE (Negative)
[2023-04-14 15:26] VITALS: PULSE 75; RESP 16; O2SAT 100
[2023-04-14] MEDS: Albuterol Sulfate 90 MCG 8 GM INHALER 4 PUFF INHALE (15:26)
[2023-04-14 15:51] VITALS: PULSE 82; RESP 16; O2SAT 100
[2023-04-14] MEDS: Albuterol Sulfate (0.083%) 2.5 MG/3 ML VIAL.NEB 5 MG INHALE (15:51)
[2023-04-14] MEDS: methylPREDNISolone Sod Succ 125 MG/2 ML VIAL IVPUSH (15:57)
--- NOTE | 2023-04-14 15:57 | ED_ITS ---
HPI - General Adult General Chief complaint: Upper Respiratory Symptoms Stated complaint: Chest pain, wheezing - asthma Time Seen by Provider: 04/14/23 13:10 Source: patient and RN notes reviewed Mode of arrival: ambulatory Limitations: no limitations History of Present Illness HPI narrative: This is a 47-year-old female, with a history of asthma, presenting to the emergency department with complaints of asthma as exacerbation since Tuesday. Patient states that she has had chest tightness, cough, nasal congestion. Cough is mildly productive with yellow colored sputum. She was seen by her primary care physician on Tuesday and was placed on prednisone 20 mg once a day which she has been taking without any relief. She did not take her prednisone today. Denies any fevers, chills, sore throat, ear pain, abdominal pain, nausea, vomiting or diarrhea. No other complaints or concerns at this time. MD complaint: Asthma exacerbation Radiation: non-radiation Quality: aching Pain Consistency: constant Relieving factors: none Exacerbating factors: none Associated symptoms: cough Treatments prior to arrival: none Related Data Home Medications Medication Instructions Recorded Confirmed albuterol sulfate 90 mcg/actuation 2 puff inhalation QID PRN 01/05/21 09/24/21 aerosol inhaler (ProAir HFA) Shortness Of Breath montelukast 10 mg tablet 10 mg PO BEDTIME 08/26/22 Previous Rx's Medication Instructions Recorded albuterol sulfate 2.5 mg/3 mL 2.5 mg (3 mL) inhalation Q6H #75 mL 08/13/21 (0.083 %) solution for nebulization prednisone 20 mg tablet 40 mg (2 x 20 mg) PO DAILY 3 days 04/14/23 #6 tabs Allergies Allergy/AdvReac Type Severity Reaction Status Date / Time No Known Allergies Allergy Verified 04/14/23 12:11 Review of Systems Review of Systems: Yes all other systems are reviewed and are negative PMFSH Past Medical History Attestation statement: The following information was validated with the patient. Medical History Asthma Rheumatoid aortitis Hyperlipidemia Family history of premature CAD Supraventricular tachycardia Surgical History S/P left oophorectomy Hx of appendectomy Family History Family History Father Heart attack Mother Heart attack Paternal Grandfather Stroke Paternal Grandmother Stroke Social History Social History Alcohol intake: never Patient Tobacco Use Status: Former Tobacco user Advance Directives: No Advance Directives Information Provided: Yes Gender identity: Female Physical Exam ED Vital Signs: Vital Signs - 24 hr 04/14/23 12:11 04/14/23 15:26 04/14/23 15:51 Temperature 98.4 F Pulse Rate 77 75 82 Respiratory Rate 18 16 16 Blood Pressure 109/58 L Pulse Oximetry 98 Oxygen Delivery Method Room Air BMI result Body Mass Index 29.3 Const Other: General: Awake, alert, and oriented X3. No acute distress. HEENT: Normal inspection, oropharynx non erythematous, no tonsillar hypertrophy or exudates. Uvula is midline. TMs are unremarkable. CVS: Normal heart rate and rhythm. Pulses normal. Respiratory: Coarse lung sounds heard throughout with expiratory wheezes heard primarily in the upper lungs. No respiratory distress Skin: Warm, dry, no rashes noted to exposed skin. Normal skin color. Normal skin turgor. Extremities: Normal to inspection Neuro: Oriented X 3. No motor deficit. No sensory deficit. Course Reevaluation(s) Reevaluation #1: Negative viral swabs, chest x-ray unremarkable. Patient received multiple puffs of albuterol inhaler without any relief. Lungs still coarse with expiratory wheezes in the upper lung henriquez. Oxygen saturation 97% on room air. Patient appears comfortable however given no clinical improvement and symptomatic improvement, will medicate with Solu-Medrol, and IV magnesium. Patient did not receive the IV magnesium as patient had some pain around the Solu-Medrol IV site. Patient is still receiving updraft, will re-evaluate. Time: 16:07 Reevaluation #2: Patient re-evaluated, lungs still coarse however better air flow, patient is feeling better. Will treat with additional 3D prednisone. Encouraged to organic chemistry professor tomorrow for follow-up. Discharged on return precautions. Patient stable for discharge. Time: 16:56 Medications Administered Discontinued Medications Generic Name Dose Route Start Last Admin Trade Name Freq PRN Reason Stop Dose Admin Albuterol Sulfate 4 puff 04/14/23 15:23 04/14/23 15:26 Albuterol Sulfate 90 Mcg 8 Gm Inhaler INHALE 04/14/23 15:24 4 puff ONCE ONE Administration Albuterol Sulfate 5 mg 04/14/23 15:46 04/14/23 15:51 Albuterol Sulfate (0.083%) 2.5 Mg/3 Ml Vial.Neb INHALE 04/14/23 15:47 5 mg ONCE ONE Administration Methylprednisolone Sodium Succinate 125 mg 04/14/23 15:37 04/14/23 15:57 Methylprednisolone Sod Succ 125 Mg/2 Ml Vial IVPUSH 04/14/23 15:38 125 mg ONCE ONE Administration Medical Decision Making Medical Decision Making MDM Narrative: This is a 47-year-old female presenting to the emergency department complaints of chest tightness, shortness of breath, cough, nasal congestion. On arrival, vital signs within normal limits. Patient is speaking in full sentences in no acute respiratory distress. Lungs are coarse with expiratory wheezes heard in the upper lung henriquez. Plan: Viral swabs, chest x-ray, Differential Diagnosis Differential Diagnoses: The differential diagnosis associated with the presentation includes Upper respiratory infection, asthma exacerbation, pneumonia Lab Data Labs: Lab Results 04/14/23 Range/Units 12:23 Influenza Type A (PCR) NEGATIVE (Negative) Influenza Type B (PCR) NEGATIVE (Negative) RSV RNA Qual (PCR) NEGATIVE (Negative) SARS-CoV-2 RNA (RT-PCR) NEGATIVE (Negative) Radiology Impression Discussion of test interpretation with radiology: I have reviewed the radiologist's reading. Radiologist Impression: EXAMINATION: XR CHEST 2 VIEW CLINICAL INFORMATION: Cough COMPARISON: 11/17/2021 TECHNIQUE: PA and lateral views of the chest obtained. FINDINGS: The lungs are clear. There are no pleural effusions. The cardiomediastinal silhouette is normal. XR/XR chest 2V IMPRESSION: No acute cardiopulmonary disease. Dictated By: Ken Miller MD Signed By: <Electronically signed by Discharge Plan Discharge Clinical Impression: Asthma exacerbation Patient Disposition: Home, Self-Care Instructions: Asthma (ED), Wheezing (ED) Additional Instructions: You presented to the emergency department due to worsening asthma. We medicated you with multiple updrafts as well as Solu-Medrol which is a steroid. Please take prednisone tomorrow as directed. Continue your at home nebulizers and inhalers. If any new or worsening symptoms occur including but not limited to worsening shortness breath, chest pain, please return for re-evaluation. Follow-up with your organic chemistry professor or primary care physician, call tomorrow to make an appointment. Prescriptions: New prednisone 20 mg tablet 40 mg PO DAILY 3 Days Qty: 6 0RF No Action albuterol sulfate 2.5 mg /3 mL (0.083 %) solution for nebulization 2.5 mg inhalation Q6H Qty: 75 0RF albuterol sulfate [ProAir HFA] 90 mcg/actuation HFA aerosol inhaler 2 puff inhalation QID PRN (Reason: Shortness Of Breath) montelukast 10 mg tablet 10 mg PO BEDTIME Stand Alone Forms: Work/School Release
[2023-04-14 17:07] VITALS: O2SAT 97
== END 2023-04-14 17:10 | disposition home or self-care (01) ==
PROVIDERS: Emergency Provider Emergency Medicine Emergency Medical Services; PCP Student in an Organized Health Care Education/Training Program
DX: R07.89 Other chest pain (principal); J45.901 Unspecified asthma with (acute) exacerbation; Z20.822 Contact with and (suspected) exposure to COVID-19; Z20.828 Contact with and (suspected) exposure to other viral communicable diseases
CPT/HCPCS: 0241U; 71046; 93005; 94640; 96374; 99285; J2930

== ENCOUNTER → 2023-04-14 11:51 | Outpatient (BNV) | payer MEDICAID, SELFPAY | PROVIDERS: Emergency Provider Emergency Medicine Emergency Medical Services; PCP Student in an Organized Health Care Education/Training Program; Visit Provider Internal Medicine Cardiovascular Disease | DX: R07.9 Chest pain, unspecified (principal) | CPT/HCPCS: 93010 ==

== ENCOUNTER 2023-05-20 11:15 | Outpatient (REF) | payer OTHER, SELFPAY | END 2023-05-20 11:16 | disposition home or self-care (01) | LOC: HO.MAMMO 11:15 | PROVIDERS: PCP Student in an Organized Health Care Education/Training Program; Visit Provider Obstetrics & Gynecology | DX: R92.2 Inconclusive mammogram (principal); N60.02 Solitary cyst of left breast | CPT/HCPCS: 77061; 77065 ==

== ENCOUNTER → 2023-05-20 11:30 | Outpatient (BNV) | payer MEDICAID, SELFPAY | PROVIDERS: PCP Student in an Organized Health Care Education/Training Program; Visit Provider Radiology Diagnostic Radiology | DX: N63.25 Unspecified lump in the left breast, overlapping quadrants (principal) | CPT/HCPCS: 77061; 77065 ==

== ENCOUNTER → 2023-05-25 07:52 | Outpatient (BNVA) | payer OTHER, SELFPAY | PROVIDERS: PCP Student in an Organized Health Care Education/Training Program; Visit Provider Internal Medicine | DX: S00.83XA Contusion of other part of head, initial encounter (principal); S00.12XA Contusion of left eyelid and periocular area, initial encounter; W21.05XA Struck by basketball, initial encounter | CPT/HCPCS: 99202 ==

== ENCOUNTER 2023-05-27 12:10 | Outpatient (REF) | payer OTHER, SELFPAY ==
[2023-05-27 15:25] LABS: Influenza A PCR NEGATIVE (Negative); Influenza B PCR NEGATIVE (Negative); Resp Syncy Virus RNA Qual PCR NEGATIVE (Negative); SARS COV2 PCR INHOUSE NEGATIVE (Negative)
== END 2023-05-27 12:11 | disposition home or self-care (01) ==
LOC: HO.CHCLNP 12:10
PROVIDERS: Visit Provider Internal Medicine
DX: Z11.52 Encounter for screening for COVID-19 (principal); Z20.822 Contact with and (suspected) exposure to COVID-19; J01.90 Acute sinusitis, unspecified; B96.89 Other specified bacterial agents as the cause of diseases classified elsewhere
CPT/HCPCS: 0241U